=== PATIENT | male | born 1980 | race Caucasian/White ===

== ENCOUNTER 2018-07-04 10:30 | Outpatient (RCR) | payer MEDICAID, SELFPAY ==
[2018-06-27 09:44] VITALS: BP 124/70; PULSE 81; RESP 18; TEMP 37; BMI 31.7
--- NOTE | 2018-06-27 17:12 | PCM.WC.HP ---
(1) Ulcer of right lower extremity with fat layer exposed Status: Chronic Current Visit: Yes Code(s): L97.912 - Non-pressure chronic ulcer of unspecified part of right lower leg with fat layer exposed (2) Type 2 diabetes mellitus Status: Chronic Current Visit: Yes Code(s): E11.9 - Type 2 diabetes mellitus without complications (3) Tobacco abuse Status: Chronic Current Visit: Yes Code(s): Z72.0 - Tobacco use History of Present Illness Chief Complaint: Nonhealing right lower extremity ulcer. History of Wound: Mr. Kohli is a 38-year-old who was referred to the wound center by his primary care physician due to nonhealing right lower extremity ulcer. Symptoms started about 2 years ago and had onset was/appeared to be a small pimple with bruising. Subsequently opened up to present state. Has been managed by his primary care physician/attempted care without any significant improvement but persistent/continued worsening. Denies any known history of ulcerative colitis. Denies any autoimmune disease. Feels well otherwise. Does admit to poor diabetes control. Past Medical History Past Medical History: Chronic Problems Ulcer of right lower extremity with fat layer exposed (Chronic) Type 2 diabetes mellitus (Chronic) Tobacco abuse (Chronic) Allergies/Adverse Reactions: Allergies codeine Allergy (Verified 06/27/18 10:13) Hives latex Allergy (Verified 06/27/18 10:13) Hives Penicillins Allergy (Verified 06/27/18 10:13) Vomiting metal Allergy (Uncoded 06/27/18 10:13) Hives Smoking Status: Current every day smoker Review of Systems Constitutional: Denies: Anorexia, Chills, Fever Eyes: Denies: Blurred vision, Pain, Redness HEENT: Denies: Difficulty Hearing, Difficulty Swallowing Cardiovascular: Denies: Chest Pain, Chest Tightness Respiratory: Denies: Cough, Hemoptysis Gastrointestinal: Denies: Abdominal Pain, Hematemesis, Vomiting Genitourinary: Denies: Hematuria Skin: Denies: Jaundice - Physical Exam Vital Signs Temp Pulse Resp BP 98.6 F 81 18 124/70 H 06/27/18 09:44 06/27/18 09:44 06/27/18 09:44 06/27/18 09:44 General: Alert, Oriented x3, Cooperative, No apparent distress HEENT: Atraumatic, Normocephalic Oral: Moist Mucosa Neck: Supple Lungs: Normal air movement Cardiovascular: Regular rate, Regular Rhythm, Normal S1, Normal S2 Abdomen: Soft, Non Tender Extremities: No cyanosis, No edema Skin: Ulcer/ Wound Wound Measurements and Assessment WC - Nurse 1 - General Ulcer Measurement Start: 06/27/18 09:44 Freq: Status: Active Protocol: Activity Type Activity Date Activity User E-Sign Co-Sign Detail Recorded Client Recorded Date Recorded By Document 06/27/18 09:44 [id number] 06/27/18 10:10 06/27/18 09:44 Wound Center Nurse 1 [Ulcer Assessment] 1-right posterior leg -Combined with other wound No -Current Size (cm) - Length 0.7 -Current Size (cm) - Width 0.9 -Current Size (cm) - Depth 0.2 -Total Square Cm 0.63 -Photo Taken Yes -Epithelialization None Present -Tunneling No -Undermining/Tunneling No -Circular Undermining No -Classification - Thickness Unclassifiable (Eschar Covered ) -Exudate Amt None Present -Wound Margin Flat & Intact -Granulation Amt None Present (0 %) -Slough/Fibrin Yes -Necrosis Amt Large (67-100%) -Necrotic Tissue Type Eschar -Structure Exposed N/A -Texture (Grace-wound Skin Appearance) Assessed -Moisture (Grace-wound Skin Appearance Assessed ) Dry/Scaly -Temperature (Grace-wound Skin No Abnormality Appearance) (Pt Warm) -Tenderness on Palpation (Grace-wound No Skin Appearance) -Ulcer Cleansing Rinsed/ Irrigated with Saline -Foul Odor after Cleansing No -Anesthetic Used 4% Lidocaine Solution [Edema Assessment] -Lower Limb Edema Present No WC - Nurse 2 - General Ulcer CM Notes Start: 06/27/18 09:44 Freq: Status: Active Protocol: Activity Type Activity Date Activity User E-Sign Co-Sign Detail Recorded Client Recorded Date Recorded By Document 06/27/18 10:50 MW [id number] 06/27/18 10:54 MW 06/27/18 10:50 Wound Center Nurse 2 [Procedure/Treatment] 1-right posterior leg -Time 10:51 -Correct Patient Yes -Correct Side, Site, Position Yes -Correct Procedure Yes -Procedure Performed No -Wound/Ulcer Outcome Not Healed -Ulcer Cleansing Not Cleansed -Foul Odor after Cleansing No -Bleeding Controlled with NA -Offloading No -Treatment Response Procedure Tolerated Well [See Physician Procedure note for Specifics] Pain Scale: 0-10 Numeric [Pain] -Is Patient Pain Free? Yes Musculoskeletal: No Muscle Wasting Neurological: Cranial nerves II-XII grossly intact Psych/Mental Status: Normal Affect Debridement Note Post-Debridement Measurements/Treatment WC - Nurse 2 - General Ulcer CM Notes Start: 06/27/18 09:44 Freq: Status: Active Protocol: Activity Type Activity Date Activity User E-Sign Co-Sign Detail Recorded Client Recorded Date Recorded By Document 06/27/18 10:50 MW [id number] 06/27/18 10:54 MW 06/27/18 10:50 Wound Center Nurse 2 1-right posterior leg -Time 10:51 -Correct Patient Yes -Correct Side, Site, Position Yes -Correct Procedure Yes -Procedure Performed No -Wound/Ulcer Outcome Not Healed -Ulcer Cleansing Not Cleansed -Foul Odor after Cleansing No -Bleeding Controlled with NA -Offloading No -Treatment Response Procedure Tolerated Well Pain Scale: 0-10 Numeric Is Patient Pain Free? Yes Assessment/Plan Active Problems Ulcer of right lower extremity with fat layer exposed (Chronic) Type 2 diabetes mellitus (Chronic) Tobacco abuse (Chronic) Assessment: 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 Plan: No debridement done today. As stated above, concern is for pyoderma gangrenosum. Ulceration noted with periwound erythema and centralized necrotic tissue. Santyl daily with moistened gauze over top. Also referred to dermatology for possible biopsy. Smoking cessation and optimal diabetes control very strongly recommended. Single-layer Tubigrip for edema management. His questions were answered and he was advised to call with any further questions or concerns. Follow-up in 1 week. This note was generated with [employer] dictation software. It may contain incorrect words, spelling, and punctuation that were not noted in checking the note before signing.
--- NOTE | 2018-06-27 17:16 | HP.PCM_ITS ---
(1) Ulcer of right lower extremity with fat layer exposed Status: Chronic Current Visit: Yes Code(s): L97.912 - Non-pressure chronic ulcer of unspecified part of right lower leg with fat layer exposed (2) Type 2 diabetes mellitus Status: Chronic Current Visit: Yes Code(s): E11.9 - Type 2 diabetes mellitus without complications (3) Tobacco abuse Status: Chronic Current Visit: Yes Code(s): Z72.0 - Tobacco use History of Present Illness Chief Complaint: Nonhealing right lower extremity ulcer. History of Wound: Mr. Kohli is a 38-year-old who was referred to the wound center by his primary care physician due to nonhealing right lower extremity ulcer. Symptoms started about 2 years ago and had onset was/appeared to be a small pimple with bruising. Subsequently opened up to present state. Has been managed by his primary care physician/attempted care without any significant improvement but persistent/continued worsening. Denies any known history of ulcerative colitis. Denies any autoimmune disease. Feels well otherwise. Does admit to poor diabetes control. Past Medical History Past Medical History: Chronic Problems Ulcer of right lower extremity with fat layer exposed (Chronic) Type 2 diabetes mellitus (Chronic) Tobacco abuse (Chronic) Allergies/Adverse Reactions: Allergies codeine Allergy (Verified 06/27/18 10:13) Hives latex Allergy (Verified 06/27/18 10:13) Hives Penicillins Allergy (Verified 06/27/18 10:13) Vomiting metal Allergy (Uncoded 06/27/18 10:13) Hives Smoking Status: Current every day smoker Review of Systems Constitutional: Denies: Anorexia, Chills, Fever Eyes: Denies: Blurred vision, Pain, Redness HEENT: Denies: Difficulty Hearing, Difficulty Swallowing Cardiovascular: Denies: Chest Pain, Chest Tightness Respiratory: Denies: Cough, Hemoptysis Gastrointestinal: Denies: Abdominal Pain, Hematemesis, Vomiting Genitourinary: Denies: Hematuria Skin: Denies: Jaundice - Physical Exam Vital Signs Temp Pulse Resp BP 98.6 F 81 18 124/70 H 06/27/18 09:44 06/27/18 09:44 06/27/18 09:44 06/27/18 09:44 General: Alert, Oriented x3, Cooperative, No apparent distress HEENT: Atraumatic, Normocephalic Oral: Moist Mucosa Neck: Supple Lungs: Normal air movement Cardiovascular: Regular rate, Regular Rhythm, Normal S1, Normal S2 Abdomen: Soft, Non Tender Extremities: No cyanosis, No edema Skin: Ulcer/ Wound Wound Measurements and Assessment WC - Nurse 1 - General Ulcer Measurement Start: 06/27/18 09:44 Freq: Status: Active Protocol: Activity Type Activity Date Activity User E-Sign Co-Sign Detail Recorded Client Recorded Date Recorded By Document 06/27/18 09:44 [id number] 06/27/18 10:10 06/27/18 09:44 Wound Center Nurse 1 [Ulcer Assessment] 1-right posterior leg -Combined with other wound No -Current Size (cm) - Length 0.7 -Current Size (cm) - Width 0.9 -Current Size (cm) - Depth 0.2 -Total Square Cm 0.63 -Photo Taken Yes -Epithelialization None Present -Tunneling No -Undermining/Tunneling No -Circular Undermining No -Classification - Thickness Unclassifiable (Eschar Covered ) -Exudate Amt None Present -Wound Margin Flat & Intact -Granulation Amt None Present (0 %) -Slough/Fibrin Yes -Necrosis Amt Large (67-100%) -Necrotic Tissue Type Eschar -Structure Exposed N/A -Texture (Grace-wound Skin Appearance) Assessed -Moisture (Grace-wound Skin Appearance Assessed ) Dry/Scaly -Temperature (Grace-wound Skin No Abnormality Appearance) (Pt Warm) -Tenderness on Palpation (Grace-wound No Skin Appearance) -Ulcer Cleansing Rinsed/ Irrigated with Saline -Foul Odor after Cleansing No -Anesthetic Used 4% Lidocaine Solution [Edema Assessment] -Lower Limb Edema Present No WC - Nurse 2 - General Ulcer CM Notes Start: 06/27/18 09:44 Freq: Status: Active Protocol: Activity Type Activity Date Activity User E-Sign Co-Sign Detail Recorded Client Recorded Date Recorded By Document 06/27/18 10:50 MW [id number] 06/27/18 10:54 MW 06/27/18 10:50 Wound Center Nurse 2 [Procedure/Treatment] 1-right posterior leg -Time 10:51 -Correct Patient Yes -Correct Side, Site, Position Yes -Correct Procedure Yes -Procedure Performed No -Wound/Ulcer Outcome Not Healed -Ulcer Cleansing Not Cleansed -Foul Odor after Cleansing No -Bleeding Controlled with NA -Offloading No -Treatment Response Procedure Tolerated Well [See Physician Procedure note for Specifics] Pain Scale: 0-10 Numeric [Pain] -Is Patient Pain Free? Yes Musculoskeletal: No Muscle Wasting Neurological: Cranial nerves II-XII grossly intact Psych/Mental Status: Normal Affect Debridement Note Post-Debridement Measurements/Treatment WC - Nurse 2 - General Ulcer CM Notes Start: 06/27/18 09:44 Freq: Status: Active Protocol: Activity Type Activity Date Activity User E-Sign Co-Sign Detail Recorded Client Recorded Date Recorded By Document 06/27/18 10:50 MW [id number] 06/27/18 10:54 MW 06/27/18 10:50 Wound Center Nurse 2 1-right posterior leg -Time 10:51 -Correct Patient Yes -Correct Side, Site, Position Yes -Correct Procedure Yes -Procedure Performed No -Wound/Ulcer Outcome Not Healed -Ulcer Cleansing Not Cleansed -Foul Odor after Cleansing No -Bleeding Controlled with NA -Offloading No -Treatment Response Procedure Tolerated Well Pain Scale: 0-10 Numeric Is Patient Pain Free? Yes Assessment/Plan Active Problems Ulcer of right lower extremity with fat layer exposed (Chronic) Type 2 diabetes mellitus (Chronic) Tobacco abuse (Chronic) Assessment: 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 Plan: No debridement done today. As stated above, concern is for pyoderma gangrenosum. Ulceration noted with periwound erythema and centralized necrotic tissue. Santyl daily with moistened gauze over top. Also referred to dermatology for possible biopsy. Smoking cessation and optimal diabetes control very strongly recommended. Single-layer Tubigrip for edema management. His questions were answered and he was advised to call with any further questions or concerns. Follow-up in 1 week. This note was generated with [employer] dictation software. It may contain incorrect words, spelling, and punctuation that were not noted in checking the note before signing.
[2018-07-04 11:45] VITALS: BP 127/89; PULSE 79; RESP 18; TEMP 37.1; BMI 31.7
--- NOTE | 2018-07-04 13:41 | PCM.WC.PN ---
(1) Ulcer of right lower extremity with fat layer exposed Status: Chronic Current Visit: Yes Code(s): L97.912 - Non-pressure chronic ulcer of unspecified part of right lower leg with fat layer exposed (2) Type 2 diabetes mellitus Status: Chronic Current Visit: Yes Code(s): E11.9 - Type 2 diabetes mellitus without complications (3) Tobacco abuse Status: Chronic Current Visit: Yes Code(s): Z72.0 - Tobacco use Type of Wound Chief Complaint: Nonhealing right lower extremity ulcer. History of Wound: Mr. Kohli is a 38-year-old who was referred to the wound center by his primary care physician due to nonhealing right lower extremity ulcer. Symptoms started about 2 years ago and had onset was/appeared to be a small pimple with bruising. Subsequently opened up to present state. Has been managed by his primary care physician/attempted care without any significant improvement but persistent/continued worsening. Denies any known history of ulcerative colitis. Denies any autoimmune disease. Feels well otherwise. Does admit to poor diabetes control. Progress of Wound: Only received Santyl yesterday. Ulcer has worsened. Patient also reports increased redness surrounding the ulceration. 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 - Physical Exam Vital Signs Temp Pulse Resp BP 98.7 F 79 18 127/89 H 07/04/18 11:45 07/04/18 11:45 07/04/18 11:45 07/04/18 11:45 General: Alert, Oriented x3, Cooperative, No apparent distress HEENT: Atraumatic, Normocephalic Oral: Moist Mucosa Neck: Supple Lungs: Normal air movement Abdomen: Non Tender Extremities: No cyanosis Skin: Ulcer/ Wound Wound Measurements and Assessment WC - Nurse 1 - General Ulcer Measurement Start: 06/27/18 09:44 Freq: Status: Active Protocol: Activity Type Activity Date Activity User E-Sign Co-Sign Detail Recorded Client Recorded Date Recorded By Document 07/04/18 11:45 RB [id number] 07/04/18 11:47 RB 07/04/18 11:45 Wound Center Nurse 1 [Ulcer Assessment] 1-right posterior leg -Current Size (cm) - Length 1.2 -Current Size (cm) - Width 1.2 -Current Size (cm) - Depth 0.2 -Total Square Cm 1.44 -Tunneling No -Undermining/Tunneling No -Circular Undermining No -Exudate Amt Small -Exudate Type Serosanguineous -Wound Margin Fibrotic Scar, Thickened Scar -Granulation Amt Small (1-33%) -Granulation Quality [place] -Slough/Fibrin Yes -Necrosis Amt Large (67-100%) -Necrotic Tissue Type Adherent Slough -Structure Exposed N/A -Texture (Grace-wound Skin Appearance) Assessed -Moisture (Grace-wound Skin Appearance Assessed ) -Color (Grace-wound Skin Appearance) Erythema -Temperature (Grace-wound Skin No Abnormality Appearance) (Pt Warm) -Tenderness on Palpation (Grace-wound No Skin Appearance) -Ulcer Cleansing Wound Cleanser -Foul Odor after Cleansing No -Anesthetic Used 5% Lidocaine Gel [Edema Assessment] -Lower Limb Edema Present Yes -Right Calf (cm) 38.5 -Right Ankle (cm) 22.5 WC - Nurse 2 - General Ulcer CM Notes Start: 06/27/18 09:44 Freq: Status: Active Protocol: Activity Type Activity Date Activity User E-Sign Co-Sign Detail Recorded Client Recorded Date Recorded By Document 07/04/18 11:54 MW [id number] 07/04/18 11:56 MW 07/04/18 11:54 Wound Center Nurse 2 [Procedure/Treatment] 1-right posterior leg -Time 11:54 -Correct Patient Yes -Correct Side, Site, Position Yes -Correct Procedure Yes -Procedure Performed No -Wound/Ulcer Outcome Not Healed -Ulcer Cleansing Rinsed/ Irrigated with Saline -Foul Odor after Cleansing No -Bleeding Controlled with NA -Offloading No -Treatment Response Procedure Tolerated Well [See Physician Procedure note for Specifics] Pain Scale: 0-10 Numeric [Pain] -Is Patient Pain Free? Yes Musculoskeletal: No Muscle Wasting Neurological: Cranial nerves II-XII grossly intact Psych/Mental Status: Normal Affect Debridement Note Post-Debridement Measurements/Treatment WC - Nurse 2 - General Ulcer CM Notes Start: 06/27/18 09:44 Freq: Status: Active Protocol: Activity Type Activity Date Activity User E-Sign Co-Sign Detail Recorded Client Recorded Date Recorded By Document 06/27/18 10:50 MW [id number] 06/27/18 10:54 MW Document 07/04/18 11:54 MW [id number] 07/04/18 11:56 MW 06/27/18 07/04/18 10:50 11:54 Wound Center Nurse 2 1-right posterior leg -Time 10:51 11:54 -Correct Patient Yes Yes -Correct Side, Site, Position Yes Yes -Correct Procedure Yes Yes -Procedure Performed No No -Wound/Ulcer Outcome Not Healed Not Healed -Ulcer Cleansing Not Cleansed Rinsed/ Irrigated with Saline -Foul Odor after Cleansing No No -Bleeding Controlled with NA NA -Offloading No No -Treatment Response Procedure Procedure Tolerated Well Tolerated Well Pain Scale: 0-10 Numeric Is Patient Pain Free? Yes Yes No debridement was completed today Assessment/Plan Active Problems Ulcer of right lower extremity with fat layer exposed (Chronic) Type 2 diabetes mellitus (Chronic) Tobacco abuse (Chronic) Assessment: 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 Plan: No debridement done today. As stated above, concern is for pyoderma gangrenosum. No necrotic tissue noted today. Has had only one use of Santyl. Advised to use once to twice daily however, he was advised to call the office if he notes worsening also with enzymatic debridement. He expressed understanding. He was also advised to call his insurance for dermatology options due to his need for biopsy/follow-up management if this is indeed pyoderma gangrenosum. Smoking cessation and optimal diabetes control very strongly recommended. Single-layer Tubigrip for edema management. His questions were answered and he was advised to call with any further questions or concerns. Follow-up in 1 week. This note was generated with [employer] dictation software. It may contain incorrect words, spelling, and punctuation that were not noted in checking the note before signing.
--- NOTE | 2018-07-04 13:44 | PN.PCM_ITS ---
(1) Ulcer of right lower extremity with fat layer exposed Status: Chronic Current Visit: Yes Code(s): L97.912 - Non-pressure chronic ulcer of unspecified part of right lower leg with fat layer exposed (2) Type 2 diabetes mellitus Status: Chronic Current Visit: Yes Code(s): E11.9 - Type 2 diabetes mellitus without complications (3) Tobacco abuse Status: Chronic Current Visit: Yes Code(s): Z72.0 - Tobacco use Type of Wound Chief Complaint: Nonhealing right lower extremity ulcer. History of Wound: Mr. Kohli is a 38-year-old who was referred to the wound center by his primary care physician due to nonhealing right lower extremity ulcer. Symptoms started about 2 years ago and had onset was/appeared to be a small pimple with bruising. Subsequently opened up to present state. Has been managed by his primary care physician/attempted care without any significant improvement but persistent/continued worsening. Denies any known history of ulcerative colitis. Denies any autoimmune disease. Feels well otherwise. Does admit to poor diabetes control. Progress of Wound: Only received Santyl yesterday. Ulcer has worsened. Patient also reports increased redness surrounding the ulceration. He is yet to establish with a clerk of works. - Physical Exam Vital Signs Temp Pulse Resp BP 98.7 F 79 18 127/89 H 07/04/18 11:45 07/04/18 11:45 07/04/18 11:45 07/04/18 11:45 General: Alert, Oriented x3, Cooperative, No apparent distress HEENT: Atraumatic, Normocephalic Oral: Moist Mucosa Neck: Supple Lungs: Normal air movement Abdomen: Non Tender Extremities: No cyanosis Skin: Ulcer/ Wound Wound Measurements and Assessment WC - Nurse 1 - General Ulcer Measurement Start: 06/27/18 09:44 Freq: Status: Active Protocol: Activity Type Activity Date Activity User E-Sign Co-Sign Detail Recorded Client Recorded Date Recorded By Document 07/04/18 11:45 RB [id number] 07/04/18 11:47 RB 07/04/18 11:45 Wound Center Nurse 1 [Ulcer Assessment] 1-right posterior leg -Current Size (cm) - Length 1.2 -Current Size (cm) - Width 1.2 -Current Size (cm) - Depth 0.2 -Total Square Cm 1.44 -Tunneling No -Undermining/Tunneling No -Circular Undermining No -Exudate Amt Small -Exudate Type Serosanguineous -Wound Margin Fibrotic Scar, Thickened Scar -Granulation Amt Small (1-33%) -Granulation Quality [place] -Slough/Fibrin Yes -Necrosis Amt Large (67-100%) -Necrotic Tissue Type Adherent Slough -Structure Exposed N/A -Texture (Grace-wound Skin Appearance) Assessed -Moisture (Grace-wound Skin Appearance Assessed ) -Color (Grace-wound Skin Appearance) Erythema -Temperature (Grace-wound Skin No Abnormality Appearance) (Pt Warm) -Tenderness on Palpation (Grace-wound No Skin Appearance) -Ulcer Cleansing Wound Cleanser -Foul Odor after Cleansing No -Anesthetic Used 5% Lidocaine Gel [Edema Assessment] -Lower Limb Edema Present Yes -Right Calf (cm) 38.5 -Right Ankle (cm) 22.5 WC - Nurse 2 - General Ulcer CM Notes Start: 06/27/18 09:44 Freq: Status: Active Protocol: Activity Type Activity Date Activity User E-Sign Co-Sign Detail Recorded Client Recorded Date Recorded By Document 07/04/18 11:54 MW [id number] 07/04/18 11:56 MW 07/04/18 11:54 Wound Center Nurse 2 [Procedure/Treatment] 1-right posterior leg -Time 11:54 -Correct Patient Yes -Correct Side, Site, Position Yes -Correct Procedure Yes -Procedure Performed No -Wound/Ulcer Outcome Not Healed -Ulcer Cleansing Rinsed/ Irrigated with Saline -Foul Odor after Cleansing No -Bleeding Controlled with NA -Offloading No -Treatment Response Procedure Tolerated Well [See Physician Procedure note for Specifics] Pain Scale: 0-10 Numeric [Pain] -Is Patient Pain Free? Yes Musculoskeletal: No Muscle Wasting Neurological: Cranial nerves II-XII grossly intact Psych/Mental Status: Normal Affect Debridement Note Post-Debridement Measurements/Treatment WC - Nurse 2 - General Ulcer CM Notes Start: 06/27/18 09:44 Freq: Status: Active Protocol: Activity Type Activity Date Activity User E-Sign Co-Sign Detail Recorded Client Recorded Date Recorded By Document 06/27/18 10:50 MW [id number] 06/27/18 10:54 MW Document 07/04/18 11:54 MW [id number] 07/04/18 11:56 MW 06/27/18 07/04/18 10:50 11:54 Wound Center Nurse 2 1-right posterior leg -Time 10:51 11:54 -Correct Patient Yes Yes -Correct Side, Site, Position Yes Yes -Correct Procedure Yes Yes -Procedure Performed No No -Wound/Ulcer Outcome Not Healed Not Healed -Ulcer Cleansing Not Cleansed Rinsed/ Irrigated with Saline -Foul Odor after Cleansing No No -Bleeding Controlled with NA NA -Offloading No No -Treatment Response Procedure Procedure Tolerated Well Tolerated Well Pain Scale: 0-10 Numeric Is Patient Pain Free? Yes Yes No debridement was completed today Assessment/Plan Active Problems Ulcer of right lower extremity with fat layer exposed (Chronic) Type 2 diabetes mellitus (Chronic) Tobacco abuse (Chronic) Assessment: 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 Plan: No debridement done today. As stated above, concern is for pyoderma gangrenosum. No necrotic tissue noted today. Has had only one use of Santyl. Advised to use once to twice daily however, he was advised to call the office if he notes worsening also with enzymatic debridement. He expressed understanding. He was also advised to call his insurance for dermatology options due to his need for biopsy/follow-up management if this is indeed pyoderma gangrenosum. Smoking cessation and optimal diabetes control very strongly recommended. Single-layer Tubigrip for edema management. His questions were answered and he was advised to call with any further questions or concerns. Follow-up in 1 week. This note was generated with [employer] dictation software. It may contain incorrect words, spelling, and punctuation that were not noted in checking the note before signing.
== END 2018-07-06 23:59 ==
LOC: WC 10:30
PROVIDERS: Family Provider Family Medicine; PCP Family Medicine; Visit Provider Internal Medicine
DX: E11.622 Type 2 diabetes mellitus with other skin ulcer (principal); L97.812 Non-pressure chronic ulcer of other part of right lower leg with fat layer exposed; E11.65 Type 2 diabetes mellitus with hyperglycemia; F17.200 Nicotine dependence, unspecified, uncomplicated
CPT/HCPCS: 99203; 99213; G0463

== ENCOUNTER 2018-07-11 08:10 | Outpatient (RCR) | payer MEDICAID, SELFPAY ==
[2018-07-07 01:25] VITALS: BP 127/89; PULSE 79; RESP 18; TEMP 37.1
[2018-07-11 08:29] VITALS: BP 114/72; PULSE 84; RESP 18; TEMP 36.5; BMI 31.7
--- NOTE | 2018-07-11 12:18 | PCM.WC.PN ---
(1) Ulcer of left lower extremity with fat layer exposed Status: Acute Current Visit: Yes Code(s): L97.922 - Non-pressure chronic ulcer of unspecified part of left lower leg with fat layer exposed (2) Ulcer of right lower extremity with fat layer exposed Status: Chronic Current Visit: Yes Code(s): L97.912 - Non-pressure chronic ulcer of unspecified part of right lower leg with fat layer exposed (3) Tobacco abuse Status: Chronic Current Visit: No Code(s): Z72.0 - Tobacco use (4) Type 2 diabetes mellitus Status: Chronic Current Visit: No Code(s): E11.9 - Type 2 diabetes mellitus without complications Type of Wound Chief Complaint: Nonhealing right lower extremity ulcer. History of Wound: Mr. Kohli is a 38-year-old who was referred to the wound center by his primary care physician due to nonhealing right lower extremity ulcer. Symptoms started about 2 years ago and had onset was/appeared to be a small pimple with bruising. Subsequently opened up to present state. Has been managed by his primary care physician/attempted care without any significant improvement but persistent/continued worsening. Denies any known history of ulcerative colitis. Denies any autoimmune disease. Feels well otherwise. Does admit to poor diabetes control. Progress of Wound: Presents with a new left lower extremity ulcer which is said to have been noted suddenly. Starting out same way right lower extremity ulcer started. Right lower extremity ulcer with worsening noted. Said to have happened on Monday after significant washing/cleaning out by his daughter. Now has an appointment scheduled with dermatology. - Physical Exam Vital Signs Temp Pulse Resp BP 97.7 F L 84 18 114/72 07/11/18 08:29 07/11/18 08:29 07/11/18 08:29 07/11/18 08:29 General: Alert, Oriented x3, Cooperative, No apparent distress HEENT: Atraumatic, Normocephalic Oral: Moist Mucosa Neck: Supple Lungs: Normal air movement Extremities: No cyanosis Skin: Ulcer/ Wound Wound Measurements and Assessment WC - Nurse 1 - General Ulcer Measurement Start: 07/11/18 08:29 Freq: Status: Active Protocol: Activity Type Activity Date Activity User E-Sign Co-Sign Detail Recorded Client Recorded Date Recorded By Document 07/11/18 08:29 DV [id number] 07/11/18 08:49 DV 07/11/18 08:29 Wound Center Nurse 1 [Ulcer Assessment] #2 Medial LLE -Combined with other wound No -Current Size (cm) - Length 0.6 -Current Size (cm) - Width 0.6 -Current Size (cm) - Depth 0.1 -Total Square Cm 0.36 -Photo Taken Yes -Epithelialization None Present -Tunneling No -Undermining/Tunneling No -Circular Undermining No -Exudate Amt Medium -Exudate Type Yellow/Green -Wound Margin Flat & Intact -Granulation Amt None Present (0 %) -Granulation Quality N/A -Slough/Fibrin No -Necrosis Amt Large (67-100%) -Necrotic Tissue Type Adherent Slough -Structure Exposed None/Limited to Skin Breakdown -Texture (Grace-wound Skin Appearance) Assessed Scarring -Moisture (Grace-wound Skin Appearance Assessed ) Weeping -Color (Grace-wound Skin Appearance) Assessed Erythema -Temperature (Grace-wound Skin No Abnormality Appearance) (Pt Warm) -Tenderness on Palpation (Grace-wound No Skin Appearance) -Ulcer Cleansing Rinsed/ Irrigated with Saline -Foul Odor after Cleansing No -Anesthetic Used 5% Lidocaine Gel 1-right posterior leg -Combined with other wound No -Current Size (cm) - Length 1.4 -Current Size (cm) - Width 2.0 -Current Size (cm) - Depth 0.4 -Total Square Cm 2.80 -Photo Taken No -Epithelialization None Present -Tunneling No -Undermining/Tunneling No -Circular Undermining No -Exudate Amt Large -Exudate Type Yellow/Green -Wound Margin Flat & Intact -Granulation Amt None Present (0 %) -Granulation Quality Hyper- granulation -Slough/Fibrin Yes -Necrosis Amt Large (67-100%) -Necrotic Tissue Type Adherent Slough -Structure Exposed None/Limited to Skin Breakdown -Texture (Grace-wound Skin Appearance) Assessed Scarring -Moisture (Grace-wound Skin Appearance Assessed ) Weeping -Color (Grace-wound Skin Appearance) Assessed Erythema -Temperature (Grace-wound Skin No Abnormality Appearance) (Pt Warm) -Ulcer Cleansing Rinsed/ Irrigated with Saline -Foul Odor after Cleansing No -Anesthetic Used 5% Lidocaine Gel WC - Nurse 2 - General Ulcer CM Notes Start: 07/11/18 08:29 Freq: Status: Active Protocol: Activity Type Activity Date Activity User E-Sign Co-Sign Detail Recorded Client Recorded Date Recorded By Document 07/11/18 09:03 MW [id number] 07/11/18 09:08 MW 07/11/18 09:03 Wound Center Nurse 2 [Procedure/Treatment] #2 Medial LLE -Time 09:05 -Correct Patient Yes -Correct Side, Site, Position Yes -Correct Procedure Yes -Procedure Performed No -Wound/Ulcer Outcome Not Healed -Ulcer Cleansing Rinsed/ Irrigated with Saline -Foul Odor after Cleansing No -Bioengineered Tissue No -Bleeding Controlled with NA -Offloading No -Treatment Response Procedure Tolerated Well 1-right posterior leg -Time 09:05 -Correct Patient Yes -Correct Side, Site, Position Yes -Correct Procedure Yes -Procedure Performed No -Wound/Ulcer Outcome Not Healed -Ulcer Cleansing Rinsed/ Irrigated with Saline -Foul Odor after Cleansing No -Bioengineered Tissue No -Bleeding Controlled with NA -Offloading No -Treatment Response Procedure Tolerated Well [See Physician Procedure note for Specifics] Musculoskeletal: No Muscle Wasting Neurological: Cranial nerves II-XII grossly intact Debridement Note Post-Debridement Measurements/Treatment WC - Nurse 2 - General Ulcer CM Notes Start: 07/11/18 08:29 Freq: Status: Active Protocol: Activity Type Activity Date Activity User E-Sign Co-Sign Detail Recorded Client Recorded Date Recorded By Document 07/11/18 09:03 MW [id number] 07/11/18 09:08 MW 07/11/18 09:03 Wound Center Nurse 2 #2 [facility] LLE -Time 09:05 -Correct Patient Yes -Correct Side, Site, Position Yes -Correct Procedure Yes -Procedure Performed No -Wound/Ulcer Outcome Not Healed -Ulcer Cleansing Rinsed/ Irrigated with Saline -Foul Odor after Cleansing No -Bioengineered Tissue No -Bleeding Controlled with NA -Offloading No -Treatment Response Procedure Tolerated Well 1-right posterior leg -Time 09:05 -Correct Patient Yes -Correct Side, Site, Position Yes -Correct Procedure Yes -Procedure Performed No -Wound/Ulcer Outcome Not Healed -Ulcer Cleansing Rinsed/ Irrigated with Saline -Foul Odor after Cleansing No -Bioengineered Tissue No -Bleeding Controlled with NA -Offloading No -Treatment Response Procedure Tolerated Well No debridement was completed today Assessment/Plan Active Problems Ulcer of right lower extremity with fat layer exposed (Chronic) Ulcer of left lower extremity with fat layer exposed (Acute) Assessment: 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 Plan: Left lower extremity ulcer. Said to have been started with no known precipitating factor. Similar appearance to onset of right lower extremity ulcer. No debridement done today. Concern is for pyoderma gangrenosum. He has an appointment with dermatology on the . Will switch to Aquacel extra with gauze over top. Change daily to twice daily depending on drainage. Smoking cessation and optimal diabetes control very strongly recommended. Single-layer Tubigrip for edema management. His questions were answered and he was advised to call with any further questions or concerns. Follow-up on the 01 of August. This note was generated with [employer] dictation software. It may contain incorrect words, spelling, and punctuation that were not noted in checking the note before signing.
--- NOTE | 2018-07-11 12:22 | PN.PCM_ITS ---
(1) Ulcer of left lower extremity with fat layer exposed Status: Acute Current Visit: Yes Code(s): L97.922 - Non-pressure chronic ulcer of unspecified part of left lower leg with fat layer exposed (2) Ulcer of right lower extremity with fat layer exposed Status: Chronic Current Visit: Yes Code(s): L97.912 - Non-pressure chronic ulcer of unspecified part of right lower leg with fat layer exposed (3) Tobacco abuse Status: Chronic Current Visit: No Code(s): Z72.0 - Tobacco use (4) Type 2 diabetes mellitus Status: Chronic Current Visit: No Code(s): E11.9 - Type 2 diabetes mellitus without complications Type of Wound Chief Complaint: Nonhealing right lower extremity ulcer. History of Wound: Mr. Kohli is a 38-year-old who was referred to the wound center by his primary care physician due to nonhealing right lower extremity ulcer. Symptoms started about 2 years ago and had onset was/appeared to be a small pimple with bruising. Subsequently opened up to present state. Has been managed by his primary care physician/attempted care without any significant improvement but persistent/continued worsening. Denies any known history of ulcerative colitis. Denies any autoimmune disease. Feels well otherwise. Does admit to poor diabetes control. Progress of Wound: Presents with a new left lower extremity ulcer which is said to have been noted suddenly. Starting out same way right lower extremity ulcer started. Right lower extremity ulcer with worsening noted. Said to have happened on Monday after significant washing/cleaning out by his daughter. Now has an appointment scheduled with dermatology. - Physical Exam Vital Signs Temp Pulse Resp BP 97.7 F L 84 18 114/72 07/11/18 08:29 07/11/18 08:29 07/11/18 08:29 07/11/18 08:29 General: Alert, Oriented x3, Cooperative, No apparent distress HEENT: Atraumatic, Normocephalic Oral: Moist Mucosa Neck: Supple Lungs: Normal air movement Extremities: No cyanosis Skin: Ulcer/ Wound Wound Measurements and Assessment WC - Nurse 1 - General Ulcer Measurement Start: 07/11/18 08:29 Freq: Status: Active Protocol: Activity Type Activity Date Activity User E-Sign Co-Sign Detail Recorded Client Recorded Date Recorded By Document 07/11/18 08:29 DV [id number] 07/11/18 08:49 DV 07/11/18 08:29 Wound Center Nurse 1 [Ulcer Assessment] #2 Medial LLE -Combined with other wound No -Current Size (cm) - Length 0.6 -Current Size (cm) - Width 0.6 -Current Size (cm) - Depth 0.1 -Total Square Cm 0.36 -Photo Taken Yes -Epithelialization None Present -Tunneling No -Undermining/Tunneling No -Circular Undermining No -Exudate Amt Medium -Exudate Type Yellow/Green -Wound Margin Flat & Intact -Granulation Amt None Present (0 %) -Granulation Quality N/A -Slough/Fibrin No -Necrosis Amt Large (67-100%) -Necrotic Tissue Type Adherent Slough -Structure Exposed None/Limited to Skin Breakdown -Texture (Grace-wound Skin Appearance) Assessed Scarring -Moisture (Grace-wound Skin Appearance Assessed ) Weeping -Color (Grace-wound Skin Appearance) Assessed Erythema -Temperature (Grace-wound Skin No Abnormality Appearance) (Pt Warm) -Tenderness on Palpation (Grace-wound No Skin Appearance) -Ulcer Cleansing Rinsed/ Irrigated with Saline -Foul Odor after Cleansing No -Anesthetic Used 5% Lidocaine Gel 1-right posterior leg -Combined with other wound No -Current Size (cm) - Length 1.4 -Current Size (cm) - Width 2.0 -Current Size (cm) - Depth 0.4 -Total Square Cm 2.80 -Photo Taken No -Epithelialization None Present -Tunneling No -Undermining/Tunneling No -Circular Undermining No -Exudate Amt Large -Exudate Type Yellow/Green -Wound Margin Flat & Intact -Granulation Amt None Present (0 %) -Granulation Quality Hyper- granulation -Slough/Fibrin Yes -Necrosis Amt Large (67-100%) -Necrotic Tissue Type Adherent Slough -Structure Exposed None/Limited to Skin Breakdown -Texture (Grace-wound Skin Appearance) Assessed Scarring -Moisture (Grace-wound Skin Appearance Assessed ) Weeping -Color (Grace-wound Skin Appearance) Assessed Erythema -Temperature (Grace-wound Skin No Abnormality Appearance) (Pt Warm) -Ulcer Cleansing Rinsed/ Irrigated with Saline -Foul Odor after Cleansing No -Anesthetic Used 5% Lidocaine Gel WC - Nurse 2 - General Ulcer CM Notes Start: 07/11/18 08:29 Freq: Status: Active Protocol: Activity Type Activity Date Activity User E-Sign Co-Sign Detail Recorded Client Recorded Date Recorded By Document 07/11/18 09:03 MW [id number] 07/11/18 09:08 MW 07/11/18 09:03 Wound Center Nurse 2 [Procedure/Treatment] #2 Medial LLE -Time 09:05 -Correct Patient Yes -Correct Side, Site, Position Yes -Correct Procedure Yes -Procedure Performed No -Wound/Ulcer Outcome Not Healed -Ulcer Cleansing Rinsed/ Irrigated with Saline -Foul Odor after Cleansing No -Bioengineered Tissue No -Bleeding Controlled with NA -Offloading No -Treatment Response Procedure Tolerated Well 1-right posterior leg -Time 09:05 -Correct Patient Yes -Correct Side, Site, Position Yes -Correct Procedure Yes -Procedure Performed No -Wound/Ulcer Outcome Not Healed -Ulcer Cleansing Rinsed/ Irrigated with Saline -Foul Odor after Cleansing No -Bioengineered Tissue No -Bleeding Controlled with NA -Offloading No -Treatment Response Procedure Tolerated Well [See Physician Procedure note for Specifics] Musculoskeletal: No Muscle Wasting Neurological: Cranial nerves II-XII grossly intact Debridement Note Post-Debridement Measurements/Treatment WC - Nurse 2 - General Ulcer CM Notes Start: 07/11/18 08:29 Freq: Status: Active Protocol: Activity Type Activity Date Activity User E-Sign Co-Sign Detail Recorded Client Recorded Date Recorded By Document 07/11/18 09:03 MW [id number] 07/11/18 09:08 MW 07/11/18 09:03 Wound Center Nurse 2 #2 [facility] LLE -Time 09:05 -Correct Patient Yes -Correct Side, Site, Position Yes -Correct Procedure Yes -Procedure Performed No -Wound/Ulcer Outcome Not Healed -Ulcer Cleansing Rinsed/ Irrigated with Saline -Foul Odor after Cleansing No -Bioengineered Tissue No -Bleeding Controlled with NA -Offloading No -Treatment Response Procedure Tolerated Well 1-right posterior leg -Time 09:05 -Correct Patient Yes -Correct Side, Site, Position Yes -Correct Procedure Yes -Procedure Performed No -Wound/Ulcer Outcome Not Healed -Ulcer Cleansing Rinsed/ Irrigated with Saline -Foul Odor after Cleansing No -Bioengineered Tissue No -Bleeding Controlled with NA -Offloading No -Treatment Response Procedure Tolerated Well No debridement was completed today Assessment/Plan Active Problems Ulcer of right lower extremity with fat layer exposed (Chronic) Ulcer of left lower extremity with fat layer exposed (Acute) Assessment: 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 Plan: Left lower extremity ulcer. Said to have been started with no known precipitating factor. Similar appearance to onset of right lower extremity ulcer. No debridement done today. Concern is for pyoderma gangrenosum. He has an appointment with dermatology on the . Will switch to Aquacel extra with gauze over top. Change daily to twice daily depending on drainage. Smoking cessation and optimal diabetes control very strongly recommended. Single-layer Tubigrip for edema management. His questions were answered and he was advised to call with any further questions or concerns. Follow-up on the 01 of August. This note was generated with [employer] dictation software. It may contain incorrect words, spelling, and punctuation that were not noted in checking the note before signing.
== END 2018-08-05 23:59 ==
LOC: WC 08:10
PROVIDERS: Family Provider Family Medicine; PCP Family Medicine; Visit Provider Internal Medicine
DX: E11.622 Type 2 diabetes mellitus with other skin ulcer (principal); L97.812 Non-pressure chronic ulcer of other part of right lower leg with fat layer exposed; L97.822 Non-pressure chronic ulcer of other part of left lower leg with fat layer exposed; E11.65 Type 2 diabetes mellitus with hyperglycemia; Z72.0 Tobacco use
CPT/HCPCS: 99213; G0463

== ENCOUNTER 2020-05-06 08:39 | Outpatient (RCR) | payer MEDICAID, SELFPAY ==
[2020-05-06 09:00] VITALS: BP 127/80; PULSE 94; TEMP 36.4; BMI 31.7
--- NOTE | 2020-05-06 11:03 | PCM.WC.HP ---
(1) Open wounds of multiple sites of hand Status: Acute Code(s): S61.409A - Unspecified open wound of unspecified hand, initial encounter (2) Ulcer of left lower extremity with fat layer exposed Status: Acute Code(s): L97.922 - Non-pressure chronic ulcer of unspecified part of left lower leg with fat layer exposed (3) Tobacco abuse Status: Chronic Code(s): Z72.0 - Tobacco use (4) Type 2 diabetes mellitus Status: Chronic Qualifiers: Diabetes mellitus terminal operations manager insulin use: without group home use Diabetes mellitus complication detail: with polyneuropathy Code(s): E11.9 - Type 2 diabetes mellitus without complications History of Present Illness Date of Service: 05/06/20 Chief Complaint: Nonhealing right lower extremity ulcer. History of Wound: Mr. Kohli is a 40-year-old who was referred to the wound center by his primary care physician due to nonhealing right lower extremity ulcer. Symptoms started about 2 years ago and had onset was/appeared to be a small pimple with bruising. Subsequently opened up to present state. Has been managed by his primary care physician/attempted care without any significant improvement but persistent/continued worsening. Denies any known history of ulcerative colitis. Denies any autoimmune disease. Feels well otherwise. Does admit to poor diabetes control. Patient denies drug use even though the hand wounds are near his veins of his hands. States blood sugars run between 150-280 Past Medical History Past Medical History: Chronic Problems Ulcer of right lower extremity with fat layer exposed (Chronic) Type 2 diabetes mellitus (Chronic) Tobacco abuse (Chronic) Allergies/Adverse Reactions: Allergies codeine Allergy (Verified 06/27/18 10:13) Hives latex Allergy (Verified 06/27/18 10:13) Hives Penicillins Allergy (Verified 06/27/18 10:13) Vomiting metal Allergy (Uncoded 06/27/18 10:13) Hives Home Medications: Ambulatory Orders Medication Instructions Recorded Amlodipine 5 PO DAILY 05/06/20 Aspirin 81 PO BREAKFAST 05/06/20 Famotidine 20 PO DAILY 05/06/20 Lantus units 05/06/20 Rosuvastatin Calcium 20 DAILY 05/06/20 Vit D3/Vit K2/Calc Frutoborate 3,000 units PO QWEEK 05/06/20 buPROPion XL 05/06/20 Lives: Spouse/ Significant Other Smoking Status: Heavy Smoker (>10/day) Drugs: - - ? Review of Systems Constitutional: Denies: Chills, Fever Eyes: Denies: Blurred vision, Drainage, Pain HEENT: Denies: Difficulty Hearing, Difficulty Swallowing, Sore Throat, Visual Changes Cardiovascular: Denies: Chest Pain, Palpitations, Syncope Respiratory: Denies: Cough, Shortness of Breath Gastrointestinal: Denies: Abdominal Pain, Nausea, Vomiting Genitourinary: Denies: Dysuria, Frequency Musculoskeletal: Denies: Joint Pain, Muscle pain Skin: Reports: - - Wounds right and left dorsal hands and posterior right lower leg. Denies: Jaundice, Rash Neurological: Denies: Balance problems, Change in Speech, Difficulty swallowing, Focal weakness Psychiatric: Denies: Anxiety, Depression Endocrine: Denies: Change in Body Habitus Hematologic/ Lymphatic: Denies: Adenopathy - Physical Exam Vital Signs Temp Pulse BP 97.5 F L 94 127/80 H 05/06/20 09:00 05/06/20 09:00 05/06/20 09:00 General: Oriented x3, Cooperative, Well developed HEENT: Atraumatic, PERRLA Oral: Moist Mucosa Neck: Supple, No JVD Lungs: Clear to auscultation, Normal air movement Cardiovascular: Regular rate, Regular Rhythm Abdomen: Bowel Sounds Present, Soft, Non Tender, No Hepato-splenomegaly Extremities: No clubbing, No edema Skin: Ulcer/ Wound - Open wounds infected bilateral dorsal hands Wound Measurements and Assessment WC - Nurse 1 - General Ulcer Measurement Start: 05/06/20 08:56 Freq: Status: Active Protocol: Activity Type Activity Date Activity User E-Sign Co-Sign Detail Recorded Client Recorded Date Recorded By Document 05/06/20 09:00 KR [id number] 05/06/20 09:18 KR 05/06/20 09:00 Wound Center Nurse 1 [Ulcer Assessment] #5 Left Hand -Current Size (cm) - Length 4 -Current Size (cm) - Width 0.5 -Current Size (cm) - Depth 0.1 -Total Square Cm 2.0 -Exudate Amt Small -Exudate Type Serosanguineous -Wound Margin Distinct, Outline Attached -Granulation Amt Large (67-100%) -Granulation Quality Red -Necrosis Amt None Present (0 %) -Texture (Grace-wound Skin Appearance) Assessed, Scarring -Moisture (Grace-wound Skin Appearance No Abnormality, ) Assessed -Color (Grace-wound Skin Appearance) No Abnormality, Assessed -Temperature (Grace-wound Skin No Abnormality Appearance) (Pt Warm) -Tenderness on Palpation (Grace-wound No Skin Appearance) -Ulcer Cleansing Rinsed/ Irrigated with Saline -Foul Odor after Cleansing No -Anesthetic Used 4% Lidocaine Solution #4 Right Hand -Current Size (cm) - Length 5 -Current Size (cm) - Width 0.5 -Current Size (cm) - Depth 0.1 -Total Square Cm 2.5 -Exudate Amt None Present -Wound Margin Distinct, Outline Attached -Granulation Amt Large (67-100%) -Granulation Quality Red -Necrosis Amt None Present (0 %) -Texture (Grace-wound Skin Appearance) Assessed, Scarring -Moisture (Grace-wound Skin Appearance No Abnormality, ) Assessed -Color (Grace-wound Skin Appearance) No Abnormality, Assessed -Temperature (Grace-wound Skin No Abnormality Appearance) (Pt Warm) -Tenderness on Palpation (Grace-wound No Skin Appearance) -Ulcer Cleansing Rinsed/ Irrigated with Saline -Foul Odor after Cleansing No -Anesthetic Used 4% Lidocaine Solution # 3 Right Posterior Leg -Current Size (cm) - Length 1.7 -Current Size (cm) - Width 1.5 -Current Size (cm) - Depth 0.2 -Total Square Cm 2.55 -Exudate Amt Small -Exudate Type Serosanguineous -Wound Margin Distinct, Outline Attached -Granulation Amt Medium (34-66%) -Granulation Quality Red -Necrosis Amt Medium (34-66%) -Necrotic Tissue Type Adherent Slough -Texture (Grace-wound Skin Appearance) Assessed, Scarring -Moisture (Grace-wound Skin Appearance No Abnormality, ) Assessed -Color (Grace-wound Skin Appearance) No Abnormality, Assessed -Temperature (Grace-wound Skin No Abnormality Appearance) (Pt Warm) -Tenderness on Palpation (Grace-wound No Skin Appearance) -Ulcer Cleansing Rinsed/ Irrigated with Saline -Foul Odor after Cleansing No -Anesthetic Used 4% Lidocaine Solution [Edema Assessment] -Right Calf (cm) 38 -Right Ankle (cm) 24 WC - Nurse 2 - General Ulcer CM Notes Start: 05/06/20 08:56 Freq: Status: Active Protocol: Activity Type Activity Date Activity User E-Sign Co-Sign Detail Recorded Client Recorded Date Recorded By Document 05/06/20 09:40 MW [id number] 05/06/20 09:48 MW 05/06/20 09:40 Wound Center Nurse 2 [Procedure/Treatment] #5 Left Hand -Time 09:44 -Correct Patient Yes -Correct Side, Site, Position Yes -Correct Procedure Yes -Procedure Performed Yes -Type of Procedure Debridement -Clinical Debridement Subcutaneous -Tissue Removed Subcutaneous -Post Debridement (cm) - Length 1.3 -Post Debridement (cm) - Width 0.7 -Post Debridement (cm) - Depth 2 -Total Square (Post) (cm) 0.91 -Area of Debridement (cm) - Length 1.3 -Area of Debridement (cm) - Width 0.7 -Total Square (Area) (cm) 0.91 -Tunneling No -Undermining/Tunneling No -Circular Undermining No -Wound/Ulcer Outcome Not Healed -Ulcer Cleansing Rinsed/ Irrigated with Saline -Foul Odor after Cleansing No -Bioengineered Tissue No -Bleeding Controlled with Pressure -Offloading No -Treatment Response Procedure Tolerated Well -Debridement - Subq, 1st 20sq cm Yes #4 Right Hand -Time 09:45 -Correct Patient Yes -Correct Side, Site, Position Yes -Correct Procedure Yes -Procedure Performed Yes -Type of Procedure Debridement -Clinical Debridement Subcutaneous -Tissue Removed Subcutaneous -Post Debridement (cm) - Length 0.8 -Post Debridement (cm) - Width 0.7 -Post Debridement (cm) - Depth 0.2 -Total Square (Post) (cm) 0.56 -Area of Debridement (cm) - Length 0.8 -Area of Debridement (cm) - Width 0.7 -Total Square (Area) (cm) 0.56 -Tunneling No -Undermining/Tunneling No -Circular Undermining No -Wound/Ulcer Outcome Not Healed -Ulcer Cleansing Rinsed/ Irrigated with Saline -Foul Odor after Cleansing No -Bioengineered Tissue No -Bleeding Controlled with Pressure -Offloading No -Treatment Response Procedure Tolerated Well -Debridement - Subq, 1st 20sq cm No # 3 Right Posterior Leg -Time 09:45 -Correct Patient Yes -Correct Side, Site, Position Yes -Correct Procedure Yes -Procedure Performed Yes -Type of Procedure Debridement -Clinical Debridement Subcutaneous -Tissue Removed Subcutaneous -Post Debridement (cm) - Length 1.4 -Post Debridement (cm) - Width 1.3 -Post Debridement (cm) - Depth 0.1 -Total Square (Post) (cm) 1.82 -Area of Debridement (cm) - Length 1.4 -Area of Debridement (cm) - Width 1.3 -Total Square (Area) (cm) 1.82 -Tunneling No -Undermining/Tunneling No -Circular Undermining No -Wound/Ulcer Outcome Not Healed -Ulcer Cleansing Rinsed/ Irrigated with Saline -Foul Odor after Cleansing No -Bioengineered Tissue No -Bleeding Controlled with Pressure -Offloading No -Treatment Response Procedure Tolerated Well -Debridement - Subq, 1st 20sq cm No [See Physician Procedure note for Specifics] Pain Scale: 0-10 Numeric [Pain] -Is Patient Pain Free? Yes DANTE - Nurse 3 - General Ulcer D/C NN Start: 05/06/20 08:56 Freq: Status: Active Protocol: Activity Type Activity Date Activity User E-Sign Co-Sign Detail Recorded Client Recorded Date Recorded By Document 05/06/20 10:05 WEI [id number] 05/06/20 10:07 WEI 05/06/20 10:05 Wound Care Nurse 3 [Wound Dressing] #5 Left Hand -Ulcer Cleansing Rinsed/ Irrigated with Saline -Foul Odor after Cleansing No -Primary Dressing Applied Aquacel Extra -Primary Dressing Covered/Secured Dry Gauze, with Secured with Tape -Aquacel Extra 1 #4 Right Hand -Ulcer Cleansing Rinsed/ Irrigated with Saline -Foul Odor after Cleansing No -Other Dressing Aquacel Xtra -Primary Dressing Covered/Secured Dry Gauze, with Secured with Tape # 3 Right Posterior Leg -Ulcer Cleansing Rinsed/ Irrigated with Saline -Foul Odor after Cleansing No -Other Dressing Aquacel Xtra -Primary Dressing Covered/Secured Dry Gauze, with Secured with Tape Pain Scale: 0-10 Numeric [Pain] -Is Patient Pain Free? Yes Musculoskeletal: No Tenderness to Palpation of Joints or Extremities Lymphatic: No Cervical, Supraclavicular, or Inguinal Adenopathy Neurological: Cranial nerves II-XII grossly intact, Neuro grossly intact Psych/Mental Status: Normal Affect, Appropriate Debridement Note Post-Debridement Measurements/Treatment WC - Nurse 2 - General Ulcer CM Notes Start: 05/06/20 08:56 Freq: Status: Active Protocol: Activity Type Activity Date Activity User E-Sign Co-Sign Detail Recorded Client Recorded Date Recorded By Document 05/06/20 09:40 MW [id number] 05/06/20 09:48 MW 05/06/20 09:40 Wound Center Nurse 2 #5 Left Hand -Time 09:44 -Correct Patient Yes -Correct Side, Site, Position Yes -Correct Procedure Yes -Procedure Performed Yes -Type of Procedure Debridement -Clinical Debridement Subcutaneous -Tissue Removed Subcutaneous -Post Debridement (cm) - Length 1.3 -Post Debridement (cm) - Width 0.7 -Post Debridement (cm) - Depth 2 -Total Square (Post) (cm) 0.91 -Area of Debridement (cm) - Length 1.3 -Area of Debridement (cm) - Width 0.7 -Total Square (Area) (cm) 0.91 -Tunneling No -Undermining/Tunneling No -Circular Undermining No -Wound/Ulcer Outcome Not Healed -Ulcer Cleansing Rinsed/ Irrigated with Saline -Foul Odor after Cleansing No -Bioengineered Tissue No -Bleeding Controlled with Pressure -Offloading No -Treatment Response Procedure Tolerated Well -Debridement - Subq, 1st 20sq cm Yes #4 Right Hand -Time 09:45 -Correct Patient Yes -Correct Side, Site, Position Yes -Correct Procedure Yes -Procedure Performed Yes -Type of Procedure Debridement -Clinical Debridement Subcutaneous -Tissue Removed Subcutaneous -Post Debridement (cm) - Length 0.8 -Post Debridement (cm) - Width 0.7 -Post Debridement (cm) - Depth 0.2 -Total Square (Post) (cm) 0.56 -Area of Debridement (cm) - Length 0.8 -Area of Debridement (cm) - Width 0.7 -Total Square (Area) (cm) 0.56 -Tunneling No -Undermining/Tunneling No -Circular Undermining No -Wound/Ulcer Outcome Not Healed -Ulcer Cleansing Rinsed/ Irrigated with Saline -Foul Odor after Cleansing No -Bioengineered Tissue No -Bleeding Controlled with Pressure -Offloading No -Treatment Response Procedure Tolerated Well -Debridement - Subq, 1st 20sq cm No # 3 Right Posterior Leg -Time 09:45 -Correct Patient Yes -Correct Side, Site, Position Yes -Correct Procedure Yes -Procedure Performed Yes -Type of Procedure Debridement -Clinical Debridement Subcutaneous -Tissue Removed Subcutaneous -Post Debridement (cm) - Length 1.4 -Post Debridement (cm) - Width 1.3 -Post Debridement (cm) - Depth 0.1 -Total Square (Post) (cm) 1.82 -Area of Debridement (cm) - Length 1.4 -Area of Debridement (cm) - Width 1.3 -Total Square (Area) (cm) 1.82 -Tunneling No -Undermining/Tunneling No -Circular Undermining No -Wound/Ulcer Outcome Not Healed -Ulcer Cleansing Rinsed/ Irrigated with Saline -Foul Odor after Cleansing No -Bioengineered Tissue No -Bleeding Controlled with Pressure -Offloading No -Treatment Response Procedure Tolerated Well -Debridement - Subq, 1st 20sq cm No Pain Scale: 0-10 Numeric Is Patient Pain Free? Yes WC - Nurse 3 - General Ulcer D/C NN Start: 05/06/20 08:56 Freq: Status: Active Protocol: Activity Type Activity Date Activity User E-Sign Co-Sign Detail Recorded Client Recorded Date Recorded By Document 05/06/20 10:05 WEI [id number] 05/06/20 10:07 WEI 05/06/20 10:05 Wound Care Nurse 3 #5 Left Hand -Ulcer Cleansing Rinsed/ Irrigated with Saline -Foul Odor after Cleansing No -Primary Dressing Applied Aquacel Extra -Primary Dressing Covered/Secured with Dry Gauze, Secured with Tape -Aquacel Extra 1 #4 Right Hand -Ulcer Cleansing Rinsed/ Irrigated with Saline -Foul Odor after Cleansing No -Other Dressing Aquacel Xtra -Primary Dressing Covered/Secured with Dry Gauze, Secured with Tape # 3 Right Posterior Leg -Ulcer Cleansing Rinsed/ Irrigated with Saline -Foul Odor after Cleansing No -Other Dressing Aquacel Xtra -Primary Dressing Covered/Secured with Dry Gauze, Secured with Tape Pain Scale: 0-10 Numeric Is Patient Pain Free? Yes Wound debrided: Right hand wound Type of Debridement: Excisional debridement Anesthesia Used: 5% Lidocaine Gel Depth: Down to and including healthy tissue, in the subcutaneous layer Percentage of wound debrided: 100 Instrument Used: 5mm curette Tissue Removed: Slough and fibrin Severity: Fat Layer Exposed Amount of bleeding with debridement: Mild Bleeding Controlled with: Compression and gauze Patient tolerated procedure well - Additional Wound Wound debrided: Dorsal hand Type of Debridement: Excisional debridement Anesthesia Used: 5% Lidocaine Gel Depth: Down to and including healthy tissue Percentage of wound debrided: 100 Instrument Used: 5mm curette Tissue Removed: Fibrin Severity: Limited To Skin Breakdown Amount of bleeding with debridement: Mild Bleeding Controlled with: Pressure Patient tolerated procedure: Patient tolerated procedure well - Additional Wound Wound debrided: Right posterior calf Type of Debridement: Excisional debridement Anesthesia Used: 5% Lidocaine Gel Depth: Down to and including healthy tissue Percentage of wound debrided: 100 Instrument Used: 5mm curette Tissue Removed: Fibrin Severity: Limited To Skin Breakdown Amount of bleeding with debridement: Mild Bleeding Controlled with: Compression and gauze Patient tolerated procedure: Patient tolerated procedure well Assessment/Plan Aerobic and anaerobic cultures obtained Assessment: 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 Plan: Right posterior calf right and left dorsal hand wash with antibacterial soap or hexachlorophene. Apply Aquacel extra to all wound bases moistened till turns to gel cover with Adaptic gauze and tape. Follow-up in 1 week. We will call if cultures are positive
--- NOTE | 2020-05-08 15:02 | WC ---
Received a call from patient c/o right hand ulcers scabbed up again and are painful. Currently applying aquacel extra moistened and adaptic to ulcers. Spoke with Magda Moran CNP. Verbal order received for Santyl ointment nickel thick to right hand ulcers daily. Called in to [facility] pharmacy in [place]. Patient notified of new wound care order. 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
== END 2020-05-06 23:59 ==
LOC: WC 08:39
PROVIDERS: PCP Family Medicine; Visit Provider Nurse Practitioner
DX: L97.211 Non-pressure chronic ulcer of right calf limited to breakdown of skin (principal); S61.402A Unspecified open wound of left hand, initial encounter; S61.401A Unspecified open wound of right hand, initial encounter; X58.XXXA Exposure to other specified factors, initial encounter; Y93.9 Activity, unspecified; Y92.9 Unspecified place or not applicable; Y99.9 Unspecified external cause status; E11.42 Type 2 diabetes mellitus with diabetic polyneuropathy; E11.65 Type 2 diabetes mellitus with hyperglycemia; F17.200 Nicotine dependence, unspecified, uncomplicated; Z79.82 Long term (current) use of aspirin; Z79.4 Long term (current) use of insulin; Z79.899 Other long term (current) drug therapy
CPT/HCPCS: 11042; 87070; 87075; 87077; 87186; 87205; 99213; G0463

== ENCOUNTER → 2021-12-20 | Outpatient (CLI) | payer MEDICAID, SELFPAY ==
[2021-12-20 11:37] LABS: Microalbumin,Random Urine 18.3 mg/L (NO RANGE EST.); Microalbumin:Creatinine Ratio 54.3 mg/g CRE (<30 mg/g CRE)
[2021-12-20 11:41] LABS: Vitamin D,25 Hydroxy 41.9 ng/mL
[2021-12-20 11:57] LABS: AST(SGOT) 11 U/L (15-37); Alanine Aminotransfer ALT/SGPT 29 U/L (16-61); Albumin, Serum 3.9 g/dL (3.2-5.0); Alkaline Phosphatase 132 U/L (45-117); Anion Gap 4 (5-15); BUN 11 mg/dL (7-18); BUN/Creat Ratio 10.7 RATIO (10-20); Calcium,Total 9.5 mg/dL (8.5-10.1); Chloride 101 mmol/L (98-107); Cholesterol 145 mg/dL (200); Creatinine, Serum 1.03 mg/dL (0.70-1.30); EST Glomerular Filtration Rate 83 mL/min (>60); Est Glom Filt Rate - Afr Amer 101 mL/min (>60); Glucose 432 mg/dL (74-106); High Density Lipoprotein 21 mg/dL; Potassium 4.7 mmol/L (3.5-5.1); Protein, Total 7.9 g/dL (6.4-8.2); Sodium Level 134 mmol/L (136-145); Thyroid Stim Hormone (TSH) 4.29 uIU/mL (0.358-3.74); Triglycerides 491 mg/dL
[2021-12-22 17:02] LABS: Thyroid Peroxidase AB < 9 IU/mL (0-34)
== END | disposition home or self-care (01) ==
LOC: LAB 10:48
PROVIDERS: PCP Internal Medicine; Referring Provider Nurse Practitioner Family; Visit Provider Nurse Practitioner Family
DX: E11.9 Type 2 diabetes mellitus without complications (principal); R79.89 Other specified abnormal findings of blood chemistry
CPT/HCPCS: 36415; 80053; 80061; 82043; 82306; 82570; 84443; 86376